=== PATIENT | male | born 1985 | race Caucasian/White ===

== ENCOUNTER 2017-07-30 09:03 | Day surgery (SDC) | payer BC, OTHER ==
--- NOTE | 2017-07-30 07:39 | HP ---
DATE OF SURGERY: 07/30/2017 ADMISSION DIAGNOSIS: Symptomatic left inguinal hernia. ANTICIPATED PROCEDURE: Repair. HISTORY OF PRESENT ILLNESS: The patient has a moderate sized symptomatic left inguinal hernia. PAST MEDICAL HISTORY: ALLERGIES: NONE. MEDICATIONS: Per the chart. PAST SURGICAL HISTORY: None. SOCIAL HISTORY: Negative. FAMILY HISTORY: Negative. REVIEW OF SYSTEMS: Negative. PHYSICAL EXAMINATION: VITAL SIGNS: Normal. CHEST: Clear. COR: Regular. ABDOMEN: Left inguinal hernia. IMPRESSION: Symptomatic moderate sized left inguinal hernia. PLAN: Repair.
[~2017-07-30 09:03] MED LIST: Lactated Ringers 1,000 ML IV ONE; Sensorcaine 0.25% 10 ML ONE
[2017-07-30] MEDS ORDERED: Zemuron 100 MG/10 ML IV ONE (09:04)
[2017-07-30] MEDS ORDERED: Decadron 4 MG INJ IV ONE (09:04)
[2017-07-30] MEDS ORDERED: DIPRIVAN 200 MG/20 ML IV ONE (09:04)
[2017-07-30] MEDS ORDERED: Naropin 0.5% 30 ML VIAL IJ ONE (09:04)
[2017-07-30] MEDS ORDERED: TORAdol 30 mg Injection IV ONE (09:04)
[2017-07-30] MEDS ORDERED: SUBLIMAZE 100 MCG/2 ML IV ONE (09:04)
[2017-07-30] MEDS ORDERED: Zofran 4 MG/2 ML VIAL IV ONE (09:04)
[2017-07-30] MEDS ORDERED: Lactated Ringers 1,000 ML IV SCH ×2 (09:30→16:30)
[2017-07-30] MEDS ORDERED: CEFAZOLIN 2 GM-D5W BAG** 2 GM/50 ML ML IV SCH (09:30)
[2017-07-30] MEDS ORDERED: KEFZOL 1 GM ONE (13:05)
[2017-07-30] MEDS ORDERED: DILAUDID 2 MG INJECTION ONE (14:14)
[2017-07-30] MEDS ORDERED: SUBLIMAZE 100 MCG/2 ML ONE (14:24)
[2017-07-30] MEDS ORDERED: NORCO 7.5/325 MG TAB PO PRN (15:33)
[2017-07-30] MEDS ORDERED: NORCO 7.5/325 MG TAB ONE (15:34)
[2017-07-30 16:43] VITALS: PULSE 71
[2017-07-30 17:42] VITALS: BP 125/67; O2SAT 99
--- NOTE | 2017-07-31 07:42 | OP ---
SURGERY DATE/TIME: 07/30/2017 1300 PREOPERATIVE DIAGNOSIS: Symptomatic left inguinal hernia. POSTOPERATIVE DIAGNOSIS: Left inguinal hernia 8 inches indirect. PROCEDURE: Left inguinal herniorrhaphy with mesh. SURGEON: Danilo Garza M.D. ANESTHESIA: General. COMPLICATIONS: None. CONDITION: Stable. INDICATION: Symptomatic left inguinal hernia. DESCRIPTION OF PROCEDURE: Marked preoperatively. Taken to surgery. General anesthetic. Routine prep and drape. 0.25% Marcaine infiltrated. Curvilinear limited incision. External oblique opened, cord skeletonized. There was ilioinguinal nerve preserved and its branch going off medial preserved. There was an 8 inch indirect hernia sac which was isolated. There was no sliding component. It was twisted. It was secured with 0 Prolene and it was transected. 8 inches transected. The floor repaired with 1 x 4 mesh in a Kaden ligament-type fashion throughout. Internal ring was 1 clamp tight. Hemostasis satisfactory. Cord, ilioinguinal nerve laid back in natural position. External oblique closed with 2-0 Vicryl. Joshua fascia closed with 2-0 Vicryl. Skin closed with 4-0 Vicryl. Steri-Strips applied. Sterile dressing applied. The patient tolerated the procedure satisfactorily.
== END 2017-07-30 17:54 | disposition home or self-care (01) ==
LOC: SDC 09:03
PROVIDERS: ATTEND Surgery
DX: K40.90 Unilateral inguinal hernia, without obstruction or gangrene, not specified as recurrent (principal)
CPT/HCPCS: 64486; 76937; 76942; C1781; J0690; J1100; J1170; J1885; J2405; J2704; J2795; J3010; A9270-GY

== ENCOUNTER 2019-08-21 16:31 | Emergency (ER) | payer OTHER ==
[2019-08-21] MEDS ORDERED: NORCO 5/325 MG PO ONE (16:54)
[2019-08-21 16:56] VITALS: BP 140/79; PULSE 75; O2SAT 98
[2019-08-21] MEDS ORDERED: NORCO 5/325 MG ONE (17:01)
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
--- NOTE | 2019-08-21 22:36 | XRAY ---
Indication: Pain following twisting injury. Comparison: None 3 view left ankle demonstrates mild anterolateral soft tissue swelling and tiny healed fibrous cortical defect distal tibia medial aspect. No other bony, articular, or soft tissue abnormalities.
--- NOTE | 2019-08-21 22:38 | XRAY ---
Indication: Pain following twisting injury. Comparison: None 3 view left knee demonstrates mild medial joint space narrowing. No other bony, articular, or soft tissue abnormalities.
== END 2019-08-21 17:52 | disposition home or self-care (01) ==
LOC: ED 16:31
DX: S93.402A Sprain of unspecified ligament of left ankle, initial encounter (principal); M25.572 Pain in left ankle and joints of left foot; M25.562 Pain in left knee; X50.1XXA Overexertion from prolonged static or awkward postures, initial encounter; Y93.55 Activity, bike riding; Y92.9 Unspecified place or not applicable
CPT/HCPCS: 73562; 73610; 99284; A9270-GY